=== PATIENT | male | born 1970 | race Caucasian/White ===

== ENCOUNTER → 2019-08-20 | Outpatient (CLI) | payer BC ==
[~2019-08-20] MED LIST: ASPIR 8181 MG PO; ASPIR-TRIN325 MG PO; ATORVASTATIN CA40 MG PO; BYSTOLIC 5 MG5 M1 PO; CHANTIX0.5 MG PO; EFFIENT10 MG PO; IMDUR 60 MG TAB60 M1 PO; PLAVIX 75 MG TA75 MG PO; SIMVASTATIN40 MG PO; TRIBENZOR 20-51 EACH PO
== END ==
LOC: SJCVCIMAG 11:16
DX: Z01.818 Encounter for other preprocedural examination (principal); E78.00 Pure hypercholesterolemia, unspecified; I73.9 Peripheral vascular disease, unspecified; I70.1 Atherosclerosis of renal artery; Z86.73 Personal history of transient ischemic attack (TIA), and cerebral infarction without residual deficits; I25.10 Atherosclerotic heart disease of native coronary artery without angina pectoris; I10 Essential (primary) hypertension; Z95.5 Presence of coronary angioplasty implant and graft

== ENCOUNTER → 2019-12-03 | Outpatient (CLI) | payer BC | LOC: SJCVCIMAG 09:05 | PROVIDERS: ATTEND Family Medicine | DX: I70.202 Unspecified atherosclerosis of native arteries of extremities, left leg (principal); T82.858A Stenosis of other vascular prosthetic devices, implants and grafts, initial encounter; I10 Essential (primary) hypertension; Y83.8 Other surgical procedures as the cause of abnormal reaction of the patient, or of later complication, without mention of misadventure at the time of the procedure; Y92.89 Other specified places as the place of occurrence of the external cause ==

== ENCOUNTER → 2019-12-12 | Outpatient (CLI) | payer BC, OTHER ==
[~2019-12-12] VITALS: Ht 182.9 cm; Wt 87.5 kg
[~2019-12-12] MED LIST changes: +ASA81BEC PO; +CRESTOR20 MG PO; +OLMSRTN-AMLDPN1 EAC3 PO; +REVATIO20 MG PO; +TOPROL XL25 MG PO
[2019-12-12 07:18] VITALS: BP 140/78
[2019-12-12 07:29] LABS: HEMATOCRIT 47.9 % (42.0-52.0); HEMOGLOBIN 16.6 gm/dL (14.0-18.0); MCH 32.2 pg (26.0-34.0); MCHC 34.7 g/dL (28.0-37.0); MCV 92.8 fL (80.0-100.0); RBC 5.16 mil/uL (4.50-6.00); RDW 13.4 % (10.5-14.5); WBC 10.7 thou/uL (4.0-11.0)
[2019-12-12 07:32] LABS: CALCIUM 8.6 mg/dL (8.5-10.1); CREATININE 1.2 mg/dL (0.7-1.3); POTASSIUM 3.9 mmol/L (3.5-5.1)
--- NOTE | 2019-12-12 17:28 | CATHLAB ---
[facility] [place] [address] INVASIVE PROCEDURE REPORT Name: DARELL CUBA Room #: REG AMRIK JayEmileJoleneEmile#: [id number] Admission: 12/12/19 Attend Phys: jK Corea MD, Discharge: Date of : 66 Report #: [id number] THIS REPORT FOR: cc: Emperatriz Schuler Diane C. DO Mancuso, Gerald M. MD [facility] ~ APPROVED REPORT Study performed: 12/12/2019 09:31:45 Patient Details Patient Status: Out-Patient Room #: The patient is a 49 year-old male Event Personnel Kj Corea Snowboard Instructor, Emmanuel Sears RN, Marielle Stevenson RT(R)() Scrub, Nolan Blue RTR Scrub, Mark Eller RTR Monitor Procedures Performed Left Heart Cath w/or w/o Coronaries [id number] [facility] [address] Initial Mod Sed Same Phys/QHP Gr5y 160504 72343 Mod Sed Same Phys/QHP Ea 704647 Hemostasis w/ Mynx Indication Chest pain Procedure Narrative The was infiltrated with 1% Lidocaine subcutaneous anesthesia. A SHEATH BRITE-TIP 6F X 23CM ([id number]) sheath was inserted into the RFA^. Coronary angiography was performed using coronary diagnostic catheters. The right coronary system was accessed and visualized with a JR4 catheter. The left coronary system was accessed and visualized with a JL4 catheter. The left ventricle was accessed and visualized with a PIGTAIL catheter. Left ventricular/Aortic Valve gradient assessed via catheter pullback. Left ventriculogram was performed in 30 degree projection. Closure device was deployed with a 6 Fr . The patient tolerated the procedure well and there were no complications associated with the procedure. There was no hematoma. Intraoperative Conscious Sedation Sedation start time: 826 Case end Time: 1025 Fentanyl 250 mcg Versed 5 mg CASE TIME, SEDATION AMOUNTS, FLUORO DOSES, AND CONTRAST TOTALS ARE [facility] [place] [address] INVASIVE PROCEDURE REPORT Name: DARELL CUBA Room #: [facility]#: [id number] Admission: 12/12/19 Attend Phys: Kj Corea, Discharge: Date of : 66 Report #: [id number] ALL FROM A COMBO CASE WITH DR SANCHEZ Fluoro Time: 9.84 minutes Dose: DAP 73775.30 cGycm2 1372 mGy Contrast Type and Amount: Visipaque 253 ml Hemodynamics The aortic pressure is 113/59 mmHg with a mean of 81 mmHg. The left ventricular pressure is 126/2 mmHg with a mean of mmHg. The left ventricular end diastolic pressure is 17 mmHg. PCI Technique Lesion Percutaneous coronary intervention was performed on the Common iliac. Conclusion 1. Normal left jugular size and systolic function EF 60% #2 left main mild disease giving rise to LAD and circumflex #3 LAD is moderately diseased with an eccentric proximal lesion and mild distal disease into type I stop short of the apex. Previous stent is widely patent #4 circumflex OM nondominant with mild disease #5 dominant right coronary artery is widely patent no occlusive disease Recommendations and plan: Continue aggressive risk factor modification. No indication for coronary intervention. Okay to perform proceed with vascular surgery. <ELECTRONICALLY SIGNED> By: Kj Corea MD, [facility] 12/12/191726 26 26 Kj Corea MD, FACC /INF
--- NOTE | 2019-12-14 14:26 | HC ---
[facility] [place] [address] CONSULTATION Name: DARELL CUBA Room #: REG [facility]#: [id number] Admission: 12/12/19 Attend Phys: Kj Corea MD, Discharge: Date of : 66 Report #: [id number] THIS REPORT FOR: cc: Emperatriz Schuler,Antony Dillard MD ~ CC: Emperatriz Corea DATE OF SERVICE: 12/12/2019 REASON FOR CONSULTATION: We were asked to see the patient by Dr. Dotson. HISTORY OF PRESENT ILLNESS: The patient is a 49-year-old with left lower extremity claudication. The patient states that this is limiting his ability to work. The patient has a history of peripheral arterial occlusive disease and has had stents in the past. Arteriogram today shows a tight complex lesion in the common femoral artery on the left with satisfactory runoff. The patient is a longtime smoker who states that he quit recently. PAST MEDICAL HISTORY: Also significant for hypertension and dyslipidemia. The patient denies diabetes mellitus. The patient also has been treated for renal artery stenosis with a stent. MEDICATIONS: Aspirin, Plavix, metoprolol, olmesartan, amlodipine, hydrochlorothiazide, rosuvastatin and sildenafil. ALLERGIES: The patient states he is allergic to PERCOCET. REVIEW OF SYSTEMS: GENERAL: Denies weight change or fever. EYES: Wears glasses. Denies vision change. ENT: No hearing problems, no sinus issues. RESPIRATORY: No cough, no shortness of breath. CARDIAC: Denies angina. GASTROINTESTINAL: No nausea, vomiting, blood in stool. GENITOURINARY: No urgency, frequency, blood in urine. MUSCULOSKELETAL: As mentioned, left calf claudication with exercise, has had left shoulder surgery. Denies other bone and joint problems. SKIN: No rash or infection. NEUROLOGIC: No motor or sensory dysfunction. ENDOCRINE: No goiter, no tremor. HEMATOLOGIC: Denies bruisability. [facility] [address] [place] [address] CONSULTATION Name: DARELL CUBA Rodriguez [facility] [id number] Admission: 12/12/19 Attend Phys: Kj Corea MD, Discharge: Date of : 66 Report #: [id number] PHYSICAL EXAMINATION: GENERAL: The patient is a pleasant fellow oriented and appropriate x 3. VITAL SIGNS: Blood pressure 174/82, heart rate 60. HEENT: No scleral icterus, no arcus. NECK: No mass, no bruit. CHEST: Clear to auscultation. HEART: Rhythm regular, no murmur. ABDOMEN: Soft, no mass. EXTREMITIES: No clubbing, cyanosis or edema. I do not feel popliteal pulses. No nonhealing lesions. SKIN: No rash or infection. NEUROLOGIC: No motor or sensory loss. PSYCHIATRIC: Shows insight into problem and answers questions appropriately. Oriented x 3. ASSESSMENT: The patient has a high-grade left common femoral artery stenosis with satisfactory inflow and runoff. I have recommended that the patient have a left femoral endarterectomy. Risks and details of those were discussed. Options and alternatives were reviewed. The patient understands all of this and wishes to proceed. We will arrange surgery for later this month. Thank you for the consult. <ELECTRONICALLY SIGNED> By: Antony Corado MD 12/14/19 1426 1213 1452 Antony Corado MD /nt
== END | disposition home or self-care (01) ==
LOC: CATH 06:22
PROVIDERS: Nuclear Medicine Nuclear Cardiology; ATTEND Internal Medicine Cardiovascular Disease
DX: R07.9 Chest pain, unspecified (principal); I25.10 Atherosclerotic heart disease of native coronary artery without angina pectoris; I70.213 Atherosclerosis of native arteries of extremities with intermittent claudication, bilateral legs; I70.1 Atherosclerosis of renal artery; I10 Essential (primary) hypertension; E78.5 Hyperlipidemia, unspecified; Z86.73 Personal history of transient ischemic attack (TIA), and cerebral infarction without residual deficits; Z90.49 Acquired absence of other specified parts of digestive tract; Z82.49 Family history of ischemic heart disease and other diseases of the circulatory system; Z87.891 Personal history of nicotine dependence; Z88.8 Allergy status to other drugs, medicaments and biological substances; Z79.82 Long term (current) use of aspirin; Z79.899 Other long term (current) drug therapy; Z98.890 Other specified postprocedural states

== ENCOUNTER → 2019-12-20 | Outpatient (CLI) | payer BC, OTHER | LOC: LAB 13:36 | PROVIDERS: ATTEND Surgery Vascular Surgery | DX: Z01.812 Encounter for preprocedural laboratory examination (principal); Z20.828 Contact with and (suspected) exposure to other viral communicable diseases ==

== ENCOUNTER 2019-12-25 06:20 | Inpatient (IN) | payer BC, OTHER ==
[2019-12-18 12:57] LABS: ABSOLUTE NEUTROPHILS 6.1 thou/uL (1.4-8.2); BASOPHILS 0.9 % (0.0-2.0); EOSINOPHILS 1.6 % (0.0-3.0); HEMATOCRIT 45.7 % (42.0-52.0); LYMPHOCYTES 19.6 % (24.0-44.0); MCH 32.3 pg (26.0-34.0); MCHC 34.9 g/dL (28.0-37.0); MCV 92.5 fL (80.0-100.0); PLATELET COUNT 192 thou/uL (150-400); POLYS 71.9 % (36.0-66.0); RBC 4.95 mil/uL (4.50-6.00); WBC 8.5 thou/uL (4.0-11.0)
[2019-12-18 13:07] LABS: APTT 33.8 Seconds (24.5-32.8); PROTIME 9.6 Seconds (9.3-11.4)
[2019-12-18 13:19] LABS: URINE BILIRUBIN NEGATIVE (Negative); URINE BLOOD TRACE (Negative); URINE CLARITY CLEAR; URINE COLOR YELLOW; URINE GLUCOSE-RANDOM* NEGATIVE (Negative); URINE KETONES NEGATIVE (Negative); URINE LEUKOCYTES-REFLEX NEGATIVE (Negative); URINE NITRITE-REFLEX NEGATIVE (Negative); URINE PROTEIN (DIPSTICK) NEGATIVE (Negative); URINE UROBILINOGEN 0.2 E.U./dl (0.2-1.0)
[2019-12-18 13:22] LABS: ALBUMIN 4.2 g/dL (3.4-5.0); CALCIUM 8.6 mg/dL (8.5-10.1); POTASSIUM 3.8 mmol/L (3.5-5.1); TOTAL BILIRUBIN 0.6 mg/dL (0.2-1.0); TOTAL PROTEIN 7.7 g/dL (6.4-8.2)
[~2019-12-25] VITALS: Ht 182.9 cm; Wt 88.5 kg
[2019-12-25] VITALS (7 sets, daily range): BP systolic 120–148; BP diastolic 63–80
--- NOTE | 2019-12-25 13:30 | NUR ---
ASSUMED CARE OF PT AT 1245 FROM SURGERY. PT AWAKE ALERT AND ORIENTED TIMES FOUR. VSS, IVF INFUSING PER ORDER. WILKS TO DD. WOUND VAC TO LEFT GROIN. PT C/O PAIN 07/19 AT THIS TIME. PT AT BEDSIDE. WILL CONTINUE TO MONITOR.
[2019-12-26] VITALS (15 sets, daily range): BP systolic 107–148; BP diastolic 53–83
[2019-12-26 05:28] LABS: HEMATOCRIT 35.3 % (42.0-52.0); MCH 31.5 pg (26.0-34.0); MCV 92.9 fL (80.0-100.0); RBC 3.8 mil/uL (4.50-6.00); RDW 12.7 % (10.5-14.5); WBC 13.1 thou/uL (4.0-11.0)
[2019-12-26 05:47] LABS: CALCIUM 8.1 mg/dL (8.5-10.1); POTASSIUM 4.3 mmol/L (3.5-5.1)
--- NOTE | 2019-12-26 06:21 | NUR ---
PATIENT WILL GOOD PAIN CONTROL THROUGHOUT EVENING SHIFT. PULSE IS FAINT BUT PALPABLE. PT INFORMED THE NURSE HE FELT SOME NUMBNESS ON HIS INNER LEFT THIGH AT 0530. BRUISING MORE PROMINENT THAN BEGINNING OF SHIFT WITH SOME TAUGHTNESS TO LLE. ABLE TO MOVE TOES AND FEEL PALPATION WITHOUT DIFFICULTY. AROUND 2200 PT WAS PLACED ON 3 LITERS OF O2 BECAUSE OF SOME DESATURATION TO 89-90% WHEN SLEEPING. OXYGEN REMAINED IN UPPER 90% FOR THE REST OF THE SHIFT.
--- NOTE | 2019-12-26 12:00 | NUR ---
cm visited with pt, he is a & o x 4, pleasant and able to make his needs known.cm visit with face mask and shield during visit. he stated he will have support at home if needs. ex came in town to assist and mom will be there for a few day per lloyd. no anticipated needs, will cont following as needed for dc needs.
[2019-12-26] MEDS ORDERED: HYDROCODON-ACE1 EAC7 PO (13:57)
--- NOTE | 2019-12-27 16:06 | PATH ---
[facility] [address] [place] [address] PATHOLOGY RPT PROCEDURE Name: DARELL MORGAN Rodriguez Room #: 251-P [facility] IN M.R.#: [id number] Admission: 12/25/19 Date of : 66 Discharge: 12/26/19 Report #: [id number] Path Case #: [id number] [facility] Accession Number: [id number] . 01 Material submitted: . artery - LEFT FEMORAL PLAQUE. Modifiers: left, femoral . 01 Clinical history: . PAD . 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 - Fragments of calcific atherosclerotic plaque material. . (IUV:mml; 12/27/2019) QL 12/27/2019 1422 Local . 02 Electronically signed: . Kajal Clinton MD, Pathologist NPI- [id number] . 01 Gross description: . The specimen is received in formalin, labeled "Darell Morgan, left femoral plaque". Received is a segment of moderately calcified plaque measuring 6.1 x 1.1 x 1.0 cm in greatest dimensions. The specimen is submitted representatively in cassette A1, following light decalcification. (CAA; 12/26/2019) QA/QA 12/26/2019 1053 Local . 02 Pathologist provided ICD-10: Z03.89 . 02 CPT . 247841, 655935 Specimen Comment: A courtesy copy of this report has been sent to [phone] Specimen Comment: [phone] Specimen Comment: Report sent to DR ALFARO / DR LEBLANC Performed at: [address], [place] [id number] MD Nicholas Read MD Phone: [phone] Performed at: [address] [id number] MD Kajal Clinton MD Phone: [phone]
--- NOTE | 2019-12-28 10:46 | O ---
[facility] [place] [address] OPERATIVE REPORT Name: DARELL CUBA Room #: 251-P [facility] IN M.R.#: [id number] Admission: 12/25/19 Attend Phys: Antony Corado MD Discharge: 12/26/19 Date of : 66 Report #: [id number] THIS REPORT FOR: cc: Emperatriz Schuler,Emperatriz Camp,Antony Weiss MD ~ CC: Emperatriz Corado DATE OF SERVICE: 12/25/2019 PREOPERATIVE DIAGNOSIS: Left femoral artery occlusive disease. POSTOPERATIVE DIAGNOSIS: Left femoral artery occlusive disease. OPERATION: Left femoral endarterectomy with patch closure. SURGEON: Antony Corado MD LIBRARY SCIENCE PROFESSOR: HARRISON Chakraborty. ANESTHESIA: General. INDICATIONS: The patient is a 49-year-old with atherosclerotic disease in particular, there is high-grade stenosis in the left common femoral artery and the patient presents with left lower extremity claudication. FINDINGS AND TECHNIQUE: After general anesthesia was established, an oblique left groin incision was made. Common deep and superficial femoral arteries were identified and controlled as were all of the tributaries, 10,000 units of heparin were given. The femoral vessels were occluded. A femoral arteriotomy was made. The endarterectomy was performed without creating a distal flap. Neointima was inspected and all loose debris was removed. Tacking sutures were placed at the transition zone. When the endarterectomy was deemed to be satisfactory, the arteriotomy was closed with a pericardial patch and running Prolene. When the patch was in place, flow was reestablished. Hemostasis was ascertained. Protamine was given to reverse the heparin. When hemostasis was satisfactory, the wound was closed in layers and a Prevena dressing was applied. The patient was taken to the recovery area in [facility] [address] [place] [address] OPERATIVE REPORT Name: DARELL CUBA Room #: 251-P [facility] IN ..#: [id number] Admission: 12/25/19 Attend Phys: Antony Corado MD Discharge: 12/26/19 Date of : 66 Report #: [id number] condition having tolerated the procedure well. All counts reported as correct. A good pulse was present in the posterior tibial artery. <ELECTRONICALLY SIGNED> By: Antony Corado MD 12/28/19 1046 1330 1349 Antony Corado MD /nt
== END 2019-12-26 15:20 | disposition home or self-care (01) | DRG 254 ==
LOC: TBA 06:20 → PRE 12:26 → ICU 12:56 → PRE 15:48 → ICU 12-26 15:20
PROVIDERS: Physician Assistant; ADMIT Surgery Vascular Surgery; ATTEND Surgery Vascular Surgery
DX: I70.202 Unspecified atherosclerosis of native arteries of extremities, left leg (principal); I10 Essential (primary) hypertension; Z79.899 Other long term (current) drug therapy; Z88.6 Allergy status to analgesic agent
CPT/HCPCS: 10078; 47375; 48888; 50010; 50023; 50101; 50386; 50455; 50643; 50953; 52287; 56524; 56526; 56528; 56531; 56534; 56668; 56760; 57092; 57093; 62110; 62900; 70005

== ENCOUNTER → 2020-06-12 | Outpatient (CLI) | payer BC, OTHER ==
[~2020-06-12] MED LIST changes: +HYDROCODON-ACE1 EAC7 PO
== END ==
LOC: SJCVCIMAG 07:37
PROVIDERS: ATTEND Internal Medicine Cardiovascular Disease
DX: I70.8 Atherosclerosis of other arteries (principal); I73.9 Peripheral vascular disease, unspecified; Z72.0 Tobacco use; Z95.828 Presence of other vascular implants and grafts; Z98.890 Other specified postprocedural states

== ENCOUNTER 2020-11-05 13:12 | Inpatient (IN) | payer BC, OTHER ==
[~2020-11-05] VITALS: Ht 185.4 cm; Wt 93.3 kg
--- NOTE | ~2020-11-05 | HC ---
[facility] [place] [address] CONSULTATION Name: DARELL CUBA Room #: 464-P ADM IN M.R.#: [id number] Admission: 11/05/20 Attend Phys: Brennan Pino MD Discharge: Date of : 66 Report #: [id number] THIS REPORT FOR: cc: Emperatriz Schuler,Taz Bazan MD ~ DATE OF SERVICE: 11/06/2020 CHIEF COMPLAINT: Wound infection, left leg. HISTORY OF PRESENT ILLNESS: This is a 50-year-old male patient who presented to the Emergency Department having sustained a laceration to his left lower leg while at work. 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 He underwent a primary repair. He has subsequently developed increasing pain, swelling and redness to his leg and around the wound and I have been asked to see him with regard to wound care. PAST MEDICAL HISTORY: Positive for history of hypertension, dyslipidemia, history of myocardial infarction, status post coronary stent placement. He has a history of peripheral vascular disease, status post right iliac stent placement. He denies history of diabetes mellitus. MEDICATIONS: Include enteric-coated aspirin, Plavix, Toprol, olmesartan, amlodipine, hydrochlorothiazide, Crestor, Tribenzor, Imdur, and calcium. ALLERGIES: OXYCODONE. SOCIAL HISTORY: The patient is a daily smoker. Negative for alcohol use. FAMILY HISTORY: Noncontributory. REVIEW OF SYSTEMS: CONSTITUTIONAL: The patient denies fever, chills, or weight loss. NEUROLOGICAL: The patient denies focal weakness, numbness, or tingling. EYES: The patient denies visual changes, redness, or drainage. ENT: The patient denies earache, nasal drainage, or sore throat. CARDIOVASCULAR: The patient denies chest pain, palpitations, diaphoresis. PULMONARY: The patient denies cough or shortness of breath. GASTROINTESTINAL: The patient denies nausea or vomiting or abdominal pain. ORTHOPEDIC: The patient denies any pain, swelling, or redness. A little bit of drainage from the left lower leg. Others systems in a 14-point review of systems are negative. PHYSICAL EXAMINATION: VITAL SIGNS: Include temperature 37.0, pulse 73, respiration of 17, and blood [address] [address] CONSULTATION Name: DARELL CUBA Room #: 464-P ADM IN M.R.#: [id number] Admission: 11/05/20 Attend Phys: Brennan Pino MD Discharge: Date of : 66 Report #: [id number] pressure 144/79. GENERAL: This is a well-developed, well-nourished male patient, appears to be in minimal distress. HEENT: Head normocephalic. Nose and throat clear. NECK: Supple. LUNGS: Clear. HEART: ____. ABDOMEN: Bowel sounds present. EXTREMITIES: Examination of the lower extremities demonstrate diminished yet palpable distal pulses. He has a curvilinear laceration involving the left lower leg with sutures in place. I have been able to use a Q-tip to separate the incision line a little bit and have pressed on the area and I cannot find fluctuance or express any particular drainage. A culture has been obtained. There is generalized tenderness. Again, no fluctuance noted. NEUROLOGIC: The patient is alert and oriented and appropriate. LABORATORY DATA: Include sodium 132, potassium 3.9, chloride 98, CO2 of 26, BUN 11, creatinine 1.1, glucose 114. White blood cell count 7.2 with a hemoglobin 12.8. CLINICAL IMPRESSION: 1. Traumatic wound, status post primary repair of the left lower extremity, now with a wound infection. 2. History of peripheral arterial disease. 3. History of coronary artery disease. RECOMMENDATIONS: At this point in time, we will recommend gentamicin and Xeroform gauze to the incision line and Kerlix tape daily. Elevation as much as possible. He is currently receiving intravenous antibiotics, pending cultures. We will recommend a CT scan to evaluate for possible abscess and/or foreign body. I appreciate being asked to see him in consultation. By: [phone] Taz Cramer MD /nt
[2020-11-05 13:22] VITALS: BP 100/59
[2020-11-05 13:54] LABS: ABSOLUTE NEUTROPHILS 8.3 thou/uL (1.4-8.2); BASOPHILS 0.4 % (0.0-2.0); HEMATOCRIT 38.3 % (42.0-52.0); HEMOGLOBIN 13.8 gm/dL (14.0-18.0); LYMPHOCYTES 12.5 % (24.0-44.0); MCH 32.2 pg (26.0-34.0); MCHC 35.9 g/dL (28.0-37.0); MCV 89.7 fL (80.0-100.0); MONOCYTES 4.9 % (1.0-8.0); PLATELET COUNT 187 thou/uL (150-400); POLYS 81.2 % (36.0-66.0); RBC 4.27 mil/uL (4.50-6.00); RDW 13.2 % (10.5-14.5); WBC 10.2 thou/uL (4.0-11.0)
[2020-11-05 13:58] LABS: ANION GAP 10 mmol/L (7-16); BUN 13 mg/dL (7-18); CALCIUM 8.4 mg/dL (8.5-10.1); CHLORIDE 92 mmol/L (98-107); CO2 24 mmol/L (21-32); CREATININE 1.4 mg/dL (0.7-1.3); GLUCOSE 108 mg/dL (74-106); POTASSIUM 3.9 mmol/L (3.5-5.1); SODIUM 126 mmol/L (136-145)
[2020-11-05 14:08] LABS: ALBUMIN 3.5 g/dL (3.4-5.0); SGOT 22 U/L (15-37); SGPT 28 U/L (16-63); TOTAL BILIRUBIN 0.7 mg/dL (0.2-1.0); TOTAL PROTEIN 7.2 g/dL (6.4-8.2); TROPONIN-I <0.06 ng/mL (<0.06)
[2020-11-05] MEDS ORDERED: TRIBENZOR 40-11 EACH PO (14:53)
[2020-11-05] MEDS ORDERED: CALCIUM PO (14:55)
[2020-11-05] MEDS ORDERED: IMDUR 60 MG TAB60 M1 PO (14:55)
[2020-11-05 19:22] VITALS: BP 120/63
[2020-11-06 06:15] LABS: HEMATOCRIT 36.6 % (42.0-52.0); HEMOGLOBIN 12.8 gm/dL (14.0-18.0); MCH 31.8 pg (26.0-34.0); MCHC 35.1 g/dL (28.0-37.0); MCV 90.6 fL (80.0-100.0); RBC 4.04 mil/uL (4.50-6.00); RDW 13.2 % (10.5-14.5); WBC 7.2 thou/uL (4.0-11.0)
[2020-11-06 06:26] LABS: CALCIUM 8.2 mg/dL (8.5-10.1); CREATININE 1.1 mg/dL (0.7-1.3); POTASSIUM 3.9 mmol/L (3.5-5.1)
[2020-11-06 19:43] VITALS: BP 131/59
[2020-11-06 20:06] VITALS: BP 131/75
[2020-11-07 08:44] VITALS: BP 139/78
[2020-11-07 15:40] VITALS: BP 139/78
[2020-11-07 21:10] VITALS: BP 173/88
[2020-11-07 23:23] VITALS: BP 170/94
[2020-11-08 08:23] VITALS: BP 151/73; BP 170/96
[2020-11-08 10:22] VITALS: BP 170/96
[2020-11-08] MEDS ORDERED: GENTAMICIN SULF15 GM TOP (14:09)
[2020-11-08] MEDS ORDERED: DORYX MPC120 MG PO ×2 (14:09→14:13)
== END 2020-11-08 18:25 | disposition home or self-care (01) | DRG 603 ==
LOC: ER 13:12 → EROBS 15:14 → 4W 11-06 19:43
PROVIDERS: Emergency Medicine; Nurse Practitioner; ADMIT Internal Medicine; ATTEND Internal Medicine
DX: L03.116 Cellulitis of left lower limb (principal); F32.9 Major depressive disorder, single episode, unspecified; E78.5 Hyperlipidemia, unspecified; I10 Essential (primary) hypertension; I73.9 Peripheral vascular disease, unspecified; I25.10 Atherosclerotic heart disease of native coronary artery without angina pectoris; F17.210 Nicotine dependence, cigarettes, uncomplicated; S81.812A Laceration without foreign body, left lower leg, initial encounter; Z88.6 Allergy status to analgesic agent; Z86.73 Personal history of transient ischemic attack (TIA), and cerebral infarction without residual deficits; Z90.49 Acquired absence of other specified parts of digestive tract; Z95.5 Presence of coronary angioplasty implant and graft; I25.2 Old myocardial infarction; Z79.82 Long term (current) use of aspirin; Z79.899 Other long term (current) drug therapy; X58.XXXA Exposure to other specified factors, initial encounter; Y93.89 Activity, other specified; Y92.89 Other specified places as the place of occurrence of the external cause; Y99.8 Other external cause status
CPT/HCPCS: 10045

== ENCOUNTER → 2020-12-16 | Outpatient (CLI) | payer BC, OTHER ==
[~2020-12-16] MED LIST changes: +CALCIUM PO; +DORYX MPC120 MG PO; +GENTAMICIN SULF15 GM TOP; +TRIBENZOR 40-11 EACH PO
== END ==
LOC: SJCVCIMAG 09:26
PROVIDERS: ATTEND Nuclear Medicine Nuclear Cardiology
DX: I65.23 Occlusion and stenosis of bilateral carotid arteries (principal); I70.201 Unspecified atherosclerosis of native arteries of extremities, right leg; I77.9 Disorder of arteries and arterioles, unspecified

== ENCOUNTER → 2021-01-02 | Outpatient (CLI) | payer BC, OTHER | LOC: SJCVCIMAG 13:31 | PROVIDERS: ATTEND Internal Medicine Cardiovascular Disease | DX: I08.0 Rheumatic disorders of both mitral and aortic valves (principal); I25.10 Atherosclerotic heart disease of native coronary artery without angina pectoris; R53.1 Weakness; I73.9 Peripheral vascular disease, unspecified; I10 Essential (primary) hypertension; E78.00 Pure hypercholesterolemia, unspecified; Z88.8 Allergy status to other drugs, medicaments and biological substances; Z98.61 Coronary angioplasty status; Z79.82 Long term (current) use of aspirin; Z79.899 Other long term (current) drug therapy; Z87.891 Personal history of nicotine dependence ==